=== PATIENT | female | born 1960 | race Hispanic/Latino ===

== ENCOUNTER 2017-10-11 00:39 | Emergency (ER) | payer SELFPAY ==
[2017-10-11] MEDS ORDERED: ONDANSETRON HCL 4 MG/2 ML VIAL ONE ×3 (01:06→07:15)
[2017-10-11 01:49] LABS: EOSINOPHILS % (AUTO) 0.2 % (0.0-8.0); HEMATOCRIT 38.1 % (36-48); LYMPHOCYTES % (AUTO) 5.7 % (21.0-51.0); MEAN CORPUSCULAR HEMOGLOBIN 25.7 pg (27.0-33.0); MEAN CORPUSCULAR HGB CONC 32.7 g/dL (32.0-36.0); MEAN CORPUSCULAR VOLUME 78.5 fL (79-99); MONOCYTES % (AUTO) 3.2 % (3.0-13.0); NEUTROPHILS % (AUTO) 88.9 % (40.0-77.0); PLATELET COUNT (AUTO) 214 K/uL (130-400); RED BLOOD CELL COUNT(AUTO) 4.86 MIL/uL (4.00-5.50); RED CELL DISTRIBUTION WIDTH 14.9 % (11.0-15.5); WHITE BLOOD COUNT (AUTO) 8.6 K/uL (4.8-10.8)
[2017-10-11 01:56] LABS: CREATININE 0.8 mg/dL (0.5-1.5); POTASSIUM 3.7 mmol/L (3.5-5.1)
[2017-10-11] MEDS ORDERED: SODIUM CHLORIDE 0.9% 1000ML 1,000 ML IV ONE (01:58)
[2017-10-11] MEDS ORDERED: KETOROLAC TROMETHAMINE 30MG/ML ONE (01:58)
[2017-10-11 02:01] LABS: ALBUMIN 3.9 g/dL (3.5-5.0); BILIRUBIN,TOTAL 0.3 mg/dL (0.2-1.0); TOTAL PROTEIN, SERUM 7.9 g/dL (6.0-8.3)
[2017-10-11 02:11] LABS: APPEARANCE,URINE Clear (CLEAR); BILIRUBIN,URINE Negative (NEGATIVE); COLOR,URINE Yellow (YELLOW); GLUCOSE, URINE (UA) Negative (NEGATIVE); KETONES,URINE 40 mg/dL (NEGATIVE); LEUKOCYTE ESTERASE ,URINE Negative (NEGATIVE); NITRATE,URINE Negative (NEGATIVE); OCCULT BLOOD,URINE Negative (NEGATIVE); PH,URINE 8.5 (5.0-8.0); PROTEIN,URINE Trace (NEGATIVE); UROBILINOGEN,URINE 0.2 mg/dL (0.2-1.0)
[2017-10-11 02:30] LABS: BACTERIA,URINE None Seen /HPF (None Seen); RBC,URINE None Seen /HPF (0-1); SQUAMOUS EPITHELIAL CELL,UR Few /LPF (0-2); WBC,URINE None Seen /HPF (0-1)
[2017-10-11 03:58] LABS: INR 0.98 (0.85-1.15); PARTIAL THROMBOPLASTIN TIME 26.5 SEC (26.3-35.5); PROTHROMBIN TIME 10.3 SEC (9.6-11.6)
[2017-10-11] MEDS ORDERED: MORPHINE SULFATE 2 MG/ML 1ML SYG ONE ×2 (04:20→05:18)
[2017-10-11] MEDS ORDERED: MORPHINE SULFATE 4 MG/1ML SYG ONE (07:16)
[2017-10-11] MEDS ORDERED: PROMETHAZINE HCL 25 MG/ML 1ML AMPULE IM ONE (08:30)
== END 2017-10-11 09:50 | disposition short-term general hospital (02) ==
LOC: EDH 00:39
DX: I60.9 Nontraumatic subarachnoid hemorrhage, unspecified (principal); Z88.0 Allergy status to penicillin
CPT/HCPCS: 36415; 70450; 80053; 81001; 85025; 85610; 85730; 87804 ×2; 96372; 96374; 96375; 96376; 99291; J1885; J2270; J2405 ×3; J2550; J7030

== ENCOUNTER → 2023-04-06 | Outpatient (CLI) | payer OTHER | END | disposition home or self-care (01) | LOC: RAH 08:46 → EDSTATUS 09:00 | PROVIDERS: ATTEND Internal Medicine | DX: Z12.31 Encounter for screening mammogram for malignant neoplasm of breast (principal); Z01.419 Encounter for gynecological examination (general) (routine) without abnormal findings; Z78.0 Asymptomatic menopausal state | CPT/HCPCS: 77067; 77080 ==

== ENCOUNTER → 2025-03-06 | Outpatient (CLI) | payer OTHER ==
[~2025-03-06] MED LIST: IOHEXOL 350 MG/ML 100ML INFUS..BTL IV ONE
--- NOTE | 2025-03-07 06:17 | HMCIMG ---
EXAM: CT chest with and without contrast. 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 Anemia. TECHNIQUE: Thin collimated axial CT images of the chest were obtained with sagittal and coronal reformatted images also submitted. CT scan done according to ALARA (As Low as Reasonably Achievable). Intravenous contrast was administered. COMPARISON: None. FINDINGS: The lungs are clear. No pulmonary nodules. No pleural effusions. No pericardial effusion. The cardiac chambers and intrathoracic vessels are well opacified. The heart size is within normal limits. Mild calcific atheromatous plaques in the intrathoracic aorta. Coronary vessels are grossly normal. No significant axillary, supraclavicular, or mediastinal lymphadenopathy. No focal thyroid abnormality. Abdominal findings have been described in the separate report. No acute or suspicious osseous abnormality. Mild degenerative osseous changes. IMPRESSION: 1. No acute cardiopulmonary abnormality. EXAM: CT Abdomen and Pelvis without and with IV contrast. 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 Anemia. TECHNIQUE: Thin collimated axial CT images of the abdomen and pelvis were obtained with sagittal and coronal reformatted images also submitted. CT scan done according to ALARA (As Low As Reasonably Achievable). Intravenous contrast was administered. COMPARISON: None. FINDINGS: Unremarkable visualized lung parenchyma. The liver is enlarged in size, measuring about 16.5 cm in the craniocaudal dimension and shows mild fatty changes. No focal lesion or intrahepatic biliary radical dilatation. Mild splenomegaly measuring 13.5 cm in the craniocaudal dimension. There is no focal abnormality appreciated within the gallbladder, pancreas, adrenals, or kidneys. Small fat containing umbilical hernia. There is extensive irregular circumferential wall thickening of the ileocecal junction, cecum and proximal ascending colon with mild surrounding fat stranding and multiple discrete subcentimeter mesenteric lymph nodes. No evidence of obstruction or ileus. The appendix is normal. There is no abnormality within the urinary bladder. Unremarkable reproductive organs. Abdominal and pelvic vessels are patent. No free fluid. There is no acute osseous abnormality. Mild degenerative osseous changes. IMPRESSIONS: 1. Extensive irregular circumferential wall thickening of the ileocecal junction, cecum, and proximal ascending colon with mild surrounding fat stranding and multiple discrete subcentimeter mesenteric lymph nodes, likely neoplastic in etiology. Recommend histopathological correlation. 2. No bowel obstruction. 3. Mild hepatosplenomegaly. Mild fatty liver. /[place]
== END | disposition home or self-care (01) ==
LOC: RAH 08:46
PROVIDERS: ATTEND Internal Medicine Gastroenterology
DX: D49.0 Neoplasm of unspecified behavior of digestive system (principal); K76.0 Fatty (change of) liver, not elsewhere classified; D64.9 Anemia, unspecified; I70.0 Atherosclerosis of aorta; K44.9 Diaphragmatic hernia without obstruction or gangrene; R16.1 Splenomegaly, not elsewhere classified; R59.0 Localized enlarged lymph nodes
CPT/HCPCS: 71270; 74178; Q9967

== ENCOUNTER 2025-05-13 06:30 | Day surgery (SDC) | payer OTHER ==
[2025-05-09 10:00] LABS: IMMATURE GRANULOCYTE ABSOLUTE 0.01 K/uL (0-1); NUCLEATED RED BLOOD CELLS 0.0 % (0.0-0.19); PLATELET COUNT (AUTO) 289 K/uL (130-400); RED BLOOD CELL COUNT(AUTO) 4.46 MIL/uL (4.00-5.50); RED CELL DISTRIBUTION WIDTH 15.9 % (11.0-15.5); WHITE BLOOD COUNT (AUTO) 5.8 K/uL (4.8-10.8)
[2025-05-09 10:11] LABS: INR 1.01 (0.85-1.15)
[2025-05-09 10:17] VITALS: BP 107/58; PULSE 67; RESP 18; TEMP 98
[2025-05-09 10:19] LABS: ASPARTATE AMINOTRANSFERASE 13.0 U/L (10-37); CREATININE 0.6 mg/dL (0.5-1.0); GLOMERULAR FILTR. RATE CALC 98.0 mL/min (>90); GLUCOSE,RANDOM 122.0 mg/dL (70-105); SODIUM SERUM 142.0 mmol/L (136-145); TOTAL PROTEIN, SERUM 7.4 g/dL (6.0-8.3); UREA NITROGEN, BLOOD 22.0 mg/dL (7-18)
[~2025-05-13] VITALS: Ht 162.6 cm; Wt 85.8 kg
[2025-05-13 06:33] VITALS: BP 123/74; PULSE 80; RESP 17; TEMP 97.5
[2025-05-13] MEDS: 0.9%NACL 1000ML 1,000 ML IV SCH (06:49)
[2025-05-13] MEDS ORDERED: HEParin-NS 1,000 UNIT/500 ML 500 ML IV ONE (07:19)
[2025-05-13] MEDS ORDERED: LIDOCAINE HCL 400MG/20ML VIAL ONE (07:19)
[2025-05-13] MEDS ORDERED: MIDAZOLAM HCL 1 MG/ML 2ML VIAL ONE (07:59)
[2025-05-13 09:40] VITALS: BP 127/80; PULSE 69; RESP 10; TEMP 97.1
--- NOTE | 2025-05-13 09:40 | NUR ---
DRESSING: DRESSING TO RIGHT UPPER CHEST DRY/INTACT WITH NO ACTIVE BLEEDING PRESENT. NO REDNESS/SWELLING NOTED TO SURROUNDING AREA.
[2025-05-13 09:55] VITALS: BP 131/72; PULSE 69; RESP 11
[2025-05-13 10:10] VITALS: BP 143/76; PULSE 66; RESP 14
[2025-05-13 10:25] VITALS: BP 138/74; PULSE 67; RESP 13
--- NOTE | 2025-05-13 10:25 | NUR ---
DRESSING: DRESSING TO RIGHT UPPER CHEST REMAINED DRY/INTACT WITH NO ACTIVE BLEEDING NOTED. NO REDNESS/SWELLING NOTED TO SURROUNDING AREA.
--- NOTE | 2025-05-13 13:10 | CCATH ---
STUDY: Percutaneous fluoroscopy and ultrasound-guided placement of a right internal jugular Port-a-Cath 8.5 Peruvian single port. The patient was given IV conscious sedation with 50 mcg of fentanyl and 2 mg of Versed. After right chest and neck were prepped and draped in the usual sterile technique under ultrasound guidance, using a micropuncture kit, the right internal jugular vein was accessed and an angiographic wire was placed in the superior vena cava. This was exchanged over an angiographic wire and an 8.5 Peruvian peel-away sheath was introduced. In the right midclavicular region 1% Xylocaine was used for local anesthetic, which was infiltrated all the way to the neck puncture site. Incision was made and a blunt dissection. A pocket was created in the right midclavicular region. A Port-A-Cath was then placed in the pocket and anchored with bilateral 3-0 silk sutures. The Port-a-Cath catheter was then tunneled using a trocar and placed into the puncture site. Through the angiographic wire, through the peel-away sheath, the Port-A-Cath was sized. A 40 cm length was deployed with the tip of the catheter at cavoatrial junction in satisfactory position. The Port-A-Cath with good blood return and was flushed with heparin. Using 3-0 Vicryl, subcuticular closure was made of the pocket of the Port-A-Cath and the right neck insertion site. The fluoroscopy image demonstrated the Port-A-Cath to be in satisfactory position with no kink identified. IMPRESSION: Placement of a Port-a-Cath, right internal jugular. It is a smart port CT which appears to be in satisfactory position. TID: [id number] RECEIPT: [id number]
== END 2025-05-13 10:25 | disposition home or self-care (01) ==
LOC: DAH 06:30
PROVIDERS: ATTEND Internal Medicine Hematology & Oncology
DX: C18.9 Malignant neoplasm of colon, unspecified (principal); Z79.01 Long term (current) use of anticoagulants; Z98.890 Other specified postprocedural states; Z79.899 Other long term (current) drug therapy
CPT/HCPCS: 80053; 85025; 85610; 85730; 36415; 36561; 77001; 99156; 99157 ×2; C1894; C1788; J3010; J3490; J7030; J2250; J1644 ×3; A4215; A4222; A4221; A4663; A4216; A4606; A4223 ×3

== ENCOUNTER 2025-05-29 00:25 | Emergency (ER) | payer OTHER ==
[~2025-05-29] VITALS: Ht 162.6 cm; Wt 86.2 kg
--- NOTE | 2025-05-29 00:44 | ERN ---
ED Note History of Present Illness Stated Complaint: C/O BLEEDING FROM PORT-A-CATH Chief Complaint: Other Problems Time Seen by MD: 00:39 Dictation: This is a 65-year-old female who is undergoing chemotherapy for colon cancer had a Port-A-Cath placed on 05/13/2025. Apparently for the past 1 week she had chemotherapy session with the port was accessed. A few days ago she also had iron infusion. The Port-A-Cath is placed in the right internal jugular area with the incision for axis in his subclavian area. Apparently when the patient's slept last night she felt wetness in the upper part of the neck and woke up to see the incision site bleeding. By the time she came to the ER there was no active bleeding or oozing from the incision site. No fever chills or rigors. Patient is not on any blood thinners. Patient does not recall any complications during her infusions. Temperature 98.2 pulse 68 respirations 20 blood pressure 143/88 with a pulse oximetry of 98% on room air Her chronic medical problems include diabetes mellitus, colon cancer currently undergoing chemotherapy, Port-A-Cath placement on 05/13/2025 at [facility] Allergies: Coded Allergies: No Known Drug Allergies (Unverified Allergy, Unknown, 05/09/25) Home Meds No Active Prescriptions or Reported Meds Past Medical History Past Medical History: Diabetes-Type II, Other Additional Past Medical Hx: COLON CA Surgical History: Other Surgical History Other: PORTACATH (05/13/2025) History: Not Applicable RN Note Reviewed/Agreed w/PFSH: Yes Review of System Dictation Constitutional: Negative for fever,chills, and weight loss Eyes: Negative for injury, pain,redness, and discharge ENT: Negative for injury,pain or swelling Cardiovascular: Negative for chest pain, palpitations, and edema positive for bleeding from the port site in the right subclavian area Respiratory: Negative for shortness of breath, cough, and wheezing, Abdomen/GI: Negative for abdominal pain, nausea, vomiting, diarrhea, and constipation Back: Negative for injury and pain : Negative for injury, bleeding and discharge MS/Extremity: Negative for injury and deformity Skin: Negative for rash, and discoloration Neuro: Negative for headache, weakness, numbness, tingling, and seizure Psych: Negative for suicide ideation, homicidal ideation, and hallucinations Initial Vital Sign VS Vital Signs Date Time Temp Pulse Resp B/P (MAP) Pulse Ox O2 Delivery O2 Flow Rate FiO2 05/29/25 00:29 98.2 68 20 143/88 98 Room Air Physical Exam Dictation General: awake, alert, NAD obese female Head/Face: Normocephalic, atraumatic Eyes: PERRL, EOMI, vision at baseline ENT: oral cavity clear, TMs clear, no signs of infection Neck: Trachea midline, supple, no nuchal rigidity Cardiovascular: RRR, normal S1/S2, No MRGs, no JVD right subclavian area Port-A-Cath insertion site-small amount of dried blood but no active bleeding Respiratory: CTAB, no respiratory distress, No rales or wheezes Abdomen: Soft, non-tender, non-distended, normal bowel sounds, no guarding or rebound. Skin: Warm, dry, normal turgor, no rash MS/Extremity: Pulses equal, no cyanosis, neurovascular intact, FROM Neuro: COAx4, GCS 15, strength 5/5, CN 2-12 intact, normal cerebellar exam, normal gait, Psych: Normal behavior, mood, and affect normal Extremities-trace edema without any palpable cords, Homans sign is negative Results (Laboratory/Radiology) Laboratory/Radiology Laboratory Tests Test 05/29/25 01:09 White Blood Count 9.8 K/uL (4.8-10.8) Red Blood Count 4.34 MIL/uL (4.00-5.50) Hemoglobin 9.8 g/dL (12.0-16.0) L Hematocrit 32.1 % (36-48) L Mean Corpuscular Volume 74.0 fL (79-99) L Mean Corpuscular Hemoglobin 22.6 pg (27.0-33.0) L Mean Corpuscular Hemoglobin Concent 30.5 g/dL (32.0-36.0) L Red Cell Distribution Width 16.4 % (11.0-15.5) H Platelet Count 232 K/uL (130-400) Mean Platelet Volume 10.8 fL (7.5-10.5) H Immature Granulocyte % (Auto) 0.3 % (0-1) Neutrophils (%) (Auto) 66.5 % (40.0-77.0) Lymphocytes (%) (Auto) 26.9 % (21.0-51.0) Monocytes (%) (Auto) 5.1 % (3.0-13.0) Eosinophils (%) (Auto) 0.9 % (0.0-8.0) Basophils (%) (Auto) 0.3 % (0.0-5.0) Neutrophils # (Auto) 6.5 K/uL (1.8-7.7) Lymphocytes # (Auto) 2.6 K/uL (1.0-4.8) Monocytes # (Auto) 0.5 K/uL (0.1-1.0) Eosinophils # (Auto) 0.09 K/uL (0.00-0.70) Basophils # (Auto) 0.03 K/uL (0.00-0.20) Absolute Immature Granulocyte (auto 0.03 K/uL (0-1) Nucleated Red Blood Cells 0.0 % (0.0-0.19) Red Blood Cell Morphology See comments Prothrombin Time 11.1 SEC (9.6-11.6) Prothromb Time International Ratio 1.05 (0.85-1.15) Activated Partial Thromboplast Time 29.5 SEC (26.3-35.5) Sodium Level 143 mmol/L (136-145) Potassium Level 4.2 mmol/L (3.5-5.1) Chloride Level 108 mmol/L (101-111) Carbon Dioxide Level 26 mmol/L (21-32) Blood Urea Nitrogen 19 mg/dL (7-18) H Creatinine 0.8 mg/dL (0.5-1.0) Glomerular Filtration Rate Calc 81 mL/min (>90) Random Glucose 172 mg/dL (70-105) H Total Calcium 8.6 mg/dL (8.5-10.1) Labs Reviewed?: Yes CT Scan Comment: REASON: Neoplasm of unspecified behavior of digestive system, Anemia, unspecified ORDERING PHYSICIAN: ANIL HERNANDEZ MD PROCEDURE: CAP WWO - CT CHEST/ABD/PELV W/WO CONTRAS EXAM: CT chest with and without contrast. 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 Anemia. TECHNIQUE: Thin collimated axial CT images of the chest were obtained with sagittal and coronal reformatted images also submitted. CT scan done according to ALARA (As Low as Reasonably Achievable). Intravenous contrast was administered. COMPARISON: None. FINDINGS: The lungs are clear. No pulmonary nodules. No pleural effusions. No pericardial effusion. The cardiac chambers and intrathoracic vessels are well opacified. The heart size is within normal limits. Mild calcific atheromatous plaques in the intrathoracic aorta. Coronary vessels are grossly normal. No significant axillary, supraclavicular, or mediastinal lymphadenopathy. No focal thyroid abnormality. Abdominal findings have been described in the separate report. No acute or suspicious osseous abnormality. Mild degenerative osseous changes. IMPRESSION: 1. No acute cardiopulmonary abnormality. EXAM: CT Abdomen and Pelvis without and with IV contrast. 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 Anemia. TECHNIQUE: Thin collimated axial CT images of the abdomen and pelvis were obtained with sagittal and coronal reformatted images also submitted. CT scan done according to ALARA (As Low As Reasonably Achievable). Intravenous contrast was administered. COMPARISON: None. FINDINGS: Unremarkable visualized lung parenchyma. The liver is enlarged in size, measuring about 16.5 cm in the craniocaudal dimension and shows mild fatty changes. No focal lesion or intrahepatic biliary radical dilatation. Mild splenomegaly measuring 13.5 cm in the craniocaudal dimension. There is no focal abnormality appreciated within the gallbladder, pancreas, adrenals, or kidneys. Small fat containing umbilical hernia. There is extensive irregular circumferential wall thickening of the ileocecal junction, cecum and proximal ascending colon with mild surrounding fat stranding and multiple discrete subcentimeter mesenteric lymph nodes. No evidence of obstruction or ileus. The appendix is normal. There is no abnormality within the urinary bladder. Unremarkable reproductive organs. Abdominal and pelvic vessels are patent. No free fluid. There is no acute osseous abnormality. Mild degenerative osseous changes. IMPRESSIONS: 1. Extensive irregular circumferential wall thickening of the ileocecal junction, cecum, and proximal ascending colon with mild surrounding fat stranding and multiple discrete subcentimeter mesenteric lymph nodes, likely neoplastic in etiology. Recommend histopathological correlation. 2. No bowel obstruction. 3. Mild hepatosplenomegaly. Mild fatty liver. /[place] DICTATED BY: NAYAN CHAUHAN Jr., MD DATE: 03/07/25715 ELECTRONICALLY SIGNED BY: NAYAN CHAUHAN Jr., MD DATE: 03/07/25715 ED Course ED Course Orders Procedure Category Date Status Time Cbc With Differential LAB 05/29/25 Complete 00:43 Basic Metabolic Panel LAB 05/29/25 Complete 00:43 Chest 1vw RAD 05/29/25 Resulted 00:45 Urinalysis Profile LAB 05/29/25 Logged 00:45 Pt And Ptt LAB 05/29/25 Complete 00:47 Vital Signs Date Time Temp Pulse Resp B/P (MAP) Pulse Ox O2 Delivery O2 Flow Rate FiO2 05/29/25 00:29 98.2 68 20 143/88 98 Room Air We will perform diagnostic labs, imaging and administer medications according to the patient's complaint. Once the results are available, will review and personally interpreted the labs to rule out any acute life-threatening emergency the trach require immediate intervention and treatment. I will then re-evaluate the patient after treatment and diagnostic exams have return to determine whether the patient requires any further testing, can safely be discharged home or need further admission to hospital for additional treatment and evaluation. Medical Decision Making MDM Differential diagnosis: Bleeding from the port access site, residual blood from the port oozing out, possible iron infusion which maybe mistaken for bleeding, vascular injury This is a 65-year-old female who is undergoing chemotherapy for colon cancer had a Port-A-Cath placed on 05/13/2025. Apparently for the past 1 week she had chemotherapy session with the port was accessed. A few days ago she also had iron infusion. The Port-A-Cath is placed in the right internal jugular area with the incision for axis in his subclavian area. Apparently when the patient's slept last night she felt wetness in the upper part of the neck and woke up to see the incision site bleeding. By the time she came to the ER there was no active bleeding or oozing from the incision site. No fever chills or rigors. Patient is not on any blood thinners. Patient does not recall any complications during her infusions. Temperature 98.2 pulse 68 respirations 20 blood pressure 143/88 with a pulse oximetry of 98% on room air Her chronic medical problems include diabetes mellitus, colon cancer currently undergoing chemotherapy, Port-A-Cath placement on 05/13/2025 at [facility] 1:38 a.m. labs reviewed CBC showed a white count of 9.8 hemoglobin 9.8 platelets 232. BNP 7 is with a normal limits BUN and creatinine are 19 and 0.8 with a g lucose of 172 Coagulation profile is unremarkable Chest x-ray shows mild haziness in the right basilar area. I do not have any old x-rays to compare at this time I updated the patient and spouse on available results of blood work, chest x-ray and my physical exam and at this time there is no life-threatening bleeding from the subclavian area. I explained to her the possibilities and at this time I do not believe that any further workup is indicated. The site we will be monitored and after cleaning dressing was placed. She will follow up with her oncologist Rationale: Tests considered and ordered secondary to shared decision making include: Previous outside records reviewed: Old ER visits. Risk of complication and/or morbidity or mortality of patient management: None Medications-Per medication reconciliation Need for hospitalization: Patient does not meet criteria for hospitalization. Need for emergency major/minor surgery: No There are no social concerns with this patient. Prescription drug management Prescriptions will include symptomatic care Patient's prior external medical records from other ER visits were reviewed by me as indicated. Prior testing and results from previous visits were reviewed. Prior tests were taken into account with medical decision making and resource utilization, independent historian/historians were used to obtain complete medical history. I independently interpreted the test that were performed, results were reviewed by me and considered findings on radiology if ordered. Medical management and examination interpretation discussions were had by me with other qualified healthcare professionals as indicated for the patient's care. Problem List Problem List: (1) Postoperative bleeding from incision (2) Port-A-Cath in place (3) Colon cancer (4) Anemia DX & DISP Disposition: Discharge Departure Impression: Primary Impression: Port-A-Cath in place Additional Impressions: Postoperative bleeding from incision, Colon cancer, Anemia Condition: Stable Scripts No Active Prescriptions or Reported Meds Additional Instructions: Patient and the caregiver have been informed of all the diagnostic tests and the imaging conducted during the today's visit to the emergency room and has verbalized understanding of the results I have personally reviewed and interpre brittany all diagnostic exams performed here in the ER today as well as the vital signs documented by the nursing staff. The patient is now being discharged to home and should follow up with the primary care physician or the specialist as directed by the ER staff. Follow-up with primary care provider in 1 to 2 days. Take medications as directed here in the emergency room. Okay to continue home medications unless otherwise discussed during your visit in the emergency room today. Return to your nearest emergency room if symptoms worsen or if there is no improvement. Call 911 if you need immediate assistance. Take Tylenol or Motrin o [id number] as needed and if no contraindications are present. Increase oral hydration. A wound culture or urine culture was ordered here in the emergency room department please follow-up with primary care provider and advise them to get repeat ports from our facility. If you had any Jw wrap/splints that were applied here, please do not remove them until you see your primary care or specialty. Referrals: HUNTER HILL MD (PCP) BETTY SALAS MD May 29, 2025 00:44
[2025-05-29 01:15] LABS: IMMATURE GRANULOCYTE ABSOLUTE 0.03 K/uL (0-1); NUCLEATED RED BLOOD CELLS 0.0 % (0.0-0.19); PLATELET COUNT (AUTO) 232 K/uL (130-400); RED BLOOD CELL COUNT(AUTO) 4.34 MIL/uL (4.00-5.50); RED CELL DISTRIBUTION WIDTH 16.4 % (11.0-15.5); WHITE BLOOD COUNT (AUTO) 9.8 K/uL (4.8-10.8)
[2025-05-29 01:23] LABS: CREATININE 0.8 mg/dL (0.5-1.0); GLOMERULAR FILTR. RATE CALC 81.0 mL/min (>90); GLUCOSE,RANDOM 172.0 mg/dL (70-105); SODIUM SERUM 143.0 mmol/L (136-145); UREA NITROGEN, BLOOD 19.0 mg/dL (7-18)
[2025-05-29 01:28] LABS: INR 1.05 (0.85-1.15)
--- NOTE | 2025-05-29 01:37 | HMCIMG ---
EXAM: CR Chest, 1 view CLINICAL HISTORY: Right internal jugular port bleeding. COMPARISON: None provided. FINDINGS: The right transjugular Mediport catheter tip overlies the superior cavoatrial junction. The lungs show no infiltrates or other acute findings. No pleural effusion or pneumothorax. The cardiomediastinal silhouette is within normal limits. No acute osseous abnormality. IMPRESSION: No acute cardiopulmonary process is evident. The right transjugular Mediport catheter tip overlies the superior cavoatrial junction. /[place]
[2025-05-29 02:38] VITALS: BP 136/68; PULSE 76; RESP 18; TEMP 98.2; O2SAT 99
== END 2025-05-29 02:43 | disposition home or self-care (01) ==
LOC: EDH 00:25
DX: L76.22 Postprocedural hemorrhage of skin and subcutaneous tissue following other procedure (principal); C18.9 Malignant neoplasm of colon, unspecified; E11.9 Type 2 diabetes mellitus without complications; D64.9 Anemia, unspecified
CPT/HCPCS: 36415; 71045; 80048; 85025; 85610; 85730; 99284

== ENCOUNTER 2025-06-17 07:00 | Day surgery (SDC) | payer OTHER ==
[2025-06-13 13:11] LABS: IMMATURE GRANULOCYTE ABSOLUTE 0.04 K/uL (0-1); NUCLEATED RED BLOOD CELLS 0.0 % (0.0-0.19); PLATELET COUNT (AUTO) 213 K/uL (130-400); RED BLOOD CELL COUNT(AUTO) 5.01 MIL/uL (4.00-5.50); RED CELL DISTRIBUTION WIDTH 20.5 % (11.0-15.5); WHITE BLOOD COUNT (AUTO) 7.0 K/uL (4.8-10.8)
[2025-06-13 13:21] LABS: CREATININE 0.7 mg/dL (0.5-1.0); GLOMERULAR FILTR. RATE CALC 95.0 mL/min (>90); GLUCOSE,RANDOM 206.0 mg/dL (70-105); INR 0.98 (0.85-1.15); SODIUM SERUM 143.0 mmol/L (136-145); UREA NITROGEN, BLOOD 14.0 mg/dL (7-18)
[2025-06-13 13:41] VITALS: BP 126/73; PULSE 87; RESP 13; TEMP 97.9
[~2025-06-17] VITALS: Ht 162.6 cm; Wt 87.6 kg
[2025-06-17 07:10] VITALS: BP 127/69; PULSE 79; RESP 15; TEMP 97.5
[2025-06-17] MEDS ORDERED: HEParin-NS 1,000 UNIT/500 ML 500 ML IV ONE (09:05)
[2025-06-17] MEDS ORDERED: LIDOCAINE HCL 1% MDV 50ML VIAL ONE (09:05)
[2025-06-17] MEDS ORDERED: MIDAZOLAM HCL 1 MG/ML 2ML VIAL ONE ×3 (09:33→10:22)
[2025-06-17 11:25] VITALS: BP 141/76; PULSE 67; RESP 16; TEMP 97.3
--- NOTE | 2025-06-17 11:25 | NUR ---
PT ARRIVED TO DAY #15 VSS NAD PRESSURE DRESSING TO RIGHT SIDE OF CHEST NON ADHERENT DRESSING TO LEFT SIDE OF CHEST.
[2025-06-17 11:40] VITALS: BP 148/83; PULSE 67; RESP 14
--- NOTE | 2025-06-17 11:45 | NUR ---
DR. ALVARADO CAME INTO ROOM SPOKE WITH PT AND SON ADVISED THEM TO REMOVE PRESSURE DRESSING TOMORROW WHEN SHOWERING AND TO RE-DRESS IT AFTER WITH PRESSURE DRESSING FOR ANOTHER 24 HOURS. HE ALSO ADVISED PT TO RETURN TO RADIOLOGY DEPT FOR A WOUND CARE FOLLOW UP WITH HIM.
[2025-06-17 11:55] VITALS: BP 146/73; PULSE 71; RESP 16
[2025-06-17 12:10] VITALS: BP 130/71; PULSE 69; RESP 15
--- NOTE | 2025-06-17 12:30 | NUR ---
BOTH PT AND SON GIVEN VERBAL AND WRITTEN DISCHARGE INSTRUCTIONS. IV REMOVED SITE ASYMPTOMATIC. BOTH INSTRUCTED ON DRESSING CHANGES TO RIGHT CHEST TOMORROW AFTERNOON.
--- NOTE | 2025-06-17 13:18 | OP ---
DATE OF PROCEDURE: 06/17/2025 PROCEDURES: 1. Percutaneous left internal jugular Port-A-Cath placement. 2. Removal of the right-sided Port-A-Cath. HISTORY: This is a 65-year-old lady who has infected right-sided Port-A-Cath, for removal and placement of a left internal jugular Port-A-Cath. The risks and benefits were explained. The risks include bleeding, infection. PROCEDURE DETAILS: The left neck was prepped and draped in the usual sterile technique. Under ultrasound guidance, the left internal jugular vein was accessed using a micropuncture kit. An angiographic catheter was placed into the superior vena cava. In the left midclavicular region, 1% Xylocaine used for local anesthetic, tunneling was performed after a small incision from the left midclavicular to the access of the left internal jugular vein site. Single-lumen, Smart Port-A-Cath, 8-Taiwanese was tunneled. Through the internal jugular, a peel-away sheath was introduced and the 8-Taiwanese catheter was then placed with the tip in the cavoatrial junction. The Port-A-Cath incision site was closed with 3-0 Vicryl. A 1% Xylocaine was used for local anesthetic. The right midclavicular Port-A-Cath was bluntly dissected and removed. The catheter tip was removed in total. The tip of the catheter was sent for culture. The wound was flushed with 1 g of Ancef. It was closed with 30 vicaryl suture. A compressive dressing was applied into the right Port-A-Cath site. IMPRESSION: 1. The final radiograph demonstrates there is a left-sided internal jugular Port-A-Cath with tip in the superior vena cava to be in satisfactory position. 2. Removal of a right-sided Port-A-Cath with the tip sent for culture. The patient tolerated the procedure well. PLAN: The patient is to return in 3-4 days for a wound check for me. TID: [id number] RECEIPT: [id number] [facility]
== END 2025-06-17 12:39 | disposition home or self-care (01) ==
LOC: DAH 07:00
PROVIDERS: ATTEND Internal Medicine Hematology & Oncology
DX: D50.9 Iron deficiency anemia, unspecified (principal); C18.0 Malignant neoplasm of cecum; E11.9 Type 2 diabetes mellitus without complications; E55.9 Vitamin D deficiency, unspecified; R35.1 Nocturia; Z79.01 Long term (current) use of anticoagulants
CPT/HCPCS: 80048; 85025; 85610; 85730; 36415; 36561; 77001; 36590; 99156; 99157 ×4; 87070; 87076; 87086; 87186; A6260; C1769; C1894; C1788 ×2; J3010 ×2; J0690; J2250 ×3; J2405; J1644 ×2; J3490; A4215; A6402; A4222; A4221; A4663; A4216; A4606; A4223 ×3